=== PATIENT | female | born 1995 | race Caucasian/White ===

== ENCOUNTER 2016-07-02 22:48 | Emergency (ER) | payer OTHER ==
[~2016-07-02] VITALS: Ht 154.9 cm; Wt 48.3 kg
[~2016-07-02 22:48] MED LIST: ATIVAN0.5 MG PO; CARAFATE100 MG/ML PO; ENDOCET 5-3251 EACH PO; IBUPROFEN800 MG PO; NO HOME MEDS; PEPCID40 MG PO; PRENATAL TABLE1 EAC3 PO; VICODIN 5-3001 EACH PO
[2016-07-03] MEDS ORDERED: TESSALON PERLE100 MG PO (00:05)
[2016-07-03 00:29] VITALS: BP 111/65
== END 2016-07-03 00:30 | disposition home or self-care (01) ==
LOC: EXP 22:48 → EME 22:48 → EXP 07-03 00:30
DX: J06.9 Acute upper respiratory infection, unspecified (principal)
CPT/HCPCS: 87651 90; 99281; 99283

== ENCOUNTER → 2017-02-21 | Outpatient (CLI) | payer OTHER ==
[~2017-02-21] VITALS: Ht 160 cm; Wt 56.0 kg
[~2017-02-21] MED LIST changes: +TESSALON PERLE100 MG PO
[2017-02-21 15:24] VITALS: BP 109/57
== END | disposition home or self-care (01) ==
LOC: IVINF 02-14 15:00
DX: Z31.82 Encounter for Rh incompatibility status (principal); Z3A.28 28 weeks gestation of pregnancy; Z67.91 Unspecified blood type, Rh negative
CPT/HCPCS: 96372; J2790

== ENCOUNTER 2017-05-09 12:07 | Inpatient (IN) | payer OTHER ==
[2017-05-09] VITALS (19 sets, daily range): BP systolic 96–153; BP diastolic 51–79
[~2017-05-09] VITALS: Ht 160 cm; Wt 66.3 kg
[2017-05-09 14:57] LABS: BASOPHIL (%) 0.8 % (0-1); BASOPHIL COUNT 0.1 K/uL (0-0.1); EOSINOPHIL COUNT 0.1 K/uL (0-0.3); HEMATOCRIT 37.6 % (36.0-46.0); HEMOGLOBIN 11.6 G/DL (11.9-15.5); LYMPHOCYTE (%) 7.9 % (15-42); MCH 25.2 PG (29.0-34.0); MCHC 30.9 G/DL (30.0-36.0); MCV 81.7 FL (83-99); MONOCYTE (%) 8.2 % (3-12); NEUTROPHIL (%) 79.1 % (45-76); PLATELET COUNT 222 K/uL (156-360); RBC DIS.WIDTH-CV 17.3 % (11.8-14.6); RBC DIS.WIDTH-SD 49.6 % (39-53); WHITE BLOOD COUNT 12.6 K/uL (4.1-10.2)
[2017-05-10] VITALS (11 sets, daily range): BP systolic 88–122; BP diastolic 48–61
[2017-05-11 06:26] LABS: BASOPHIL (%) 0.6 % (0-1); BASOPHIL COUNT 0.1 K/uL (0-0.1); EOSINOPHIL (%) 1.3 % (0-5); EOSINOPHIL COUNT 0.2 K/uL (0-0.3); HEMATOCRIT 33.9 % (36.0-46.0); HEMOGLOBIN 10.6 G/DL (11.9-15.5); LYMPHOCYTE (%) 8.5 % (15-42); MCH 25.7 PG (29.0-34.0); MCHC 31.3 G/DL (30.0-36.0); MCV 82.1 FL (83-99); MONOCYTE (%) 8.7 % (3-12); MONOCYTE COUNT 1.1 K/uL (0-0.8); NEUTROPHIL (%) 79.9 % (45-76); NEUTROPHIL COUNT 9.7 K/uL (1.8-6.4); PLATELET COUNT 200 K/uL (156-360); RBC DIS.WIDTH-CV 17.6 % (11.8-14.6); RBC DIS.WIDTH-SD 51.2 % (39-53); RED BLOOD COUNT 4.13 M/uL (3.80-5.20); WHITE BLOOD COUNT 12.1 K/uL (4.1-10.2)
[2017-05-11 07:18] VITALS: BP 108/57
[2017-05-11 14:31] VITALS: BP 117/56
== END 2017-05-12 13:15 | disposition home or self-care (01) | DRG 775 ==
LOC: LDRP-OP → 2WEST 12:08 → LDRP-OP 06-03 12:30
PROVIDERS: Advanced Practice Midwife
DX: O70.0 First degree perineal laceration during delivery (principal); O71.82 Other specified trauma to perineum and vulva; O69.81X0 Labor and delivery complicated by cord around neck, without compression, not applicable or unspecified; O34.219 Maternal care for unspecified type scar from previous cesarean delivery; O99.344 Other mental disorders complicating childbirth; F41.9 Anxiety disorder, unspecified; F31.9 Bipolar disorder, unspecified; Z3A.40 40 weeks gestation of pregnancy; Z37.0 Single live birth; Z81.8 Family history of other mental and behavioral disorders; Z87.891 Personal history of nicotine dependence
CPT/HCPCS: 83030; 85025; 86850; 86870; 86900; 86901; 86905; 86920; C1755; G0378; J0595; J2790; J3010; J7120